=== PATIENT | male | born 1940 | race Caucasian/White ===

== ENCOUNTER → 2016-05-01 | Outpatient (CLI) | payer MEDICARE, OTHER ==
[~2016-05-01] MED LIST: ASPIRIN 325MG325 MG PO; CRESTOR10 MG PO; ZIAC 5 MG-6.251 TAB PO
[2016-05-01 11:17] LABS: BUN 17 mg/dL (7-18)
[2016-05-01 11:21] LABS: BILIRUBIN, INDIRECT 0.91 mg/dL (0-0.9); GFR (ESTIMATED) 59 ML/MIN (>60)
== END ==
LOC: LAB 09:55
PROVIDERS: Internal Medicine; Internal Medicine Cardiovascular Disease
DX: I10 Essential (primary) hypertension (principal); E78.5 Hyperlipidemia, unspecified